=== PATIENT | female | born 1955 | race Caucasian/White ===

== ENCOUNTER 2016-10-10 00:50 | Emergency (ER) | payer OTHER ==
[2016-10-10 00:50] VITALS: BP 147/83
[~2016-10-10 00:50] MED LIST: ALBU1.25 NEB; ALBU18HF IH; CETI10TA22 PO; EPIN0.3A4 IJ; FLUT1DIS3 IH; Hydrocodone/Acetaminophen PO; MONT10TA6 PO; NITR100C62 PO
--- NOTE | 2016-10-10 00:52 | ED.ADGEN ---
Past History Past Medical History: Asthma Past Surgical History: No Surgical History, Other Smoking: Non-smoker Alcohol Use: None Drug Use: None Adult General Chief Complaint Chief Complaint " .. I was working out on that range of motion machine.. after my surgery.. and nella got a contusion on my right calf... But then I started noticing.. I having pain from my surgery site.. and all the way down to my toes on the right leg.... I'm out of my tramadol... I would like something to get me thru. until I see orthro... follow up with my doctor... Dr. Sanford... He has been doing the orthro. surgery at [facility]. .." HPI HPI Patient is a 61 year old female who presents with above hx and complaints of left leg pain which follows the sciatic nerve. Patient recently had surgery for labia hip tears. Patient denies any trauma other than the problems with range of motion unit. Distal neurovascular intact. Patient is still using crutches. Patient also complaining of some right leg muscle spasms Patient has a follow- up with orthopedics. Patient declines x-rays or lab work at this time. Wishes to be treated clinically for right leg pain. No history of DVTs or pulmonary embolisms or coagulopathy. Review of Systems Review of Systems Constitutional: Denies fever or chills [] Eyes: Denies change in visual acuity, redness, or eye pain [] HENT: Denies nasal congestion or sore throat [] Respiratory: Denies cough or shortness of breath [] Cardiovascular: No additional information not addressed in HPI [] GI: Denies abdominal pain, nausea, vomiting, bloody stools or diarrhea [] : Denies dysuria or hematuria [] Musculoskeletal: Denies back pain or joint pain [] complaints of right leg pain Integument: Denies rash or skin lesions [] Neurologic: Denies headache, focal weakness or sensory changes [] Endocrine: Denies polyuria or polydipsia [] Family History Family History Noncontributory Current Medications Current Medications See nursing for home medications Current Medications Medications (Trade) Dose Ordered Sig/Claus Start Time Stop Time Status Last Admin Dose Admin Morphine Sulfate (Morphine 10mg Syringe) 10 mg STK-MED ONCE 10/10/16 02:07 10/10/16 02:26 DC Orphenadrine Citrate (Norflex) 60 mg STK-MED ONCE 10/10/16 02:07 10/10/16 02:26 DC Allergies Allergies Allergies Coded Allergies Type Severity Reaction Last Updated Verified amoxicillin Allergy Severe 03/11/15 Yes cinnamon Allergy Severe SHORTNESS OF BREATH 03/11/15 Yes codeine Allergy Severe 03/12/15 Yes pseudoephedrine HCl Allergy Severe 03/11/15 Yes wheat Adverse Reaction Severe Nausea 06/15/13 Yes Physical Exam Physical Exam Constitutional: Mild distress, non-toxic appearance. [] HENT: Normocephalic, atraumatic, bilateral external ears normal, oropharynx moist, no oral exudates, nose normal. [] Eyes: PERRLA, EOMI, conjunctiva normal, no discharge. Disconjugate gaze Neck: Normal range of motion, no tenderness, supple, no stridor. [] Cardiovascular:Heart rate regular rhythm, no murmur [] Lungs & Thorax: Bilateral breath sounds equal at apex on auscultation [] Abdomen: Bowel sounds normal, soft, no tenderness, no masses, no pulsatile masses. [] Skin: Warm, dry, no erythema, no rash. [] Back: No tenderness, no CVA tenderness. [] Extremities: Right hip and right sciatic tenderness, no cyanosis, no clubbing, ROM but did in right leg, no edema. Suture lines are well-healed. Some mild ecchymosis at suture lines. No cording appreciated. Neurologic: Alert and oriented X 3, normal motor function, normal sensory function, no focal deficits noted. DTRs +2 at patella's Psychologic: Affect anxious, judgement normal, mood normal. [] Current Patient Data Vital Signs Vital Signs Date Time Temp Pulse Resp B/P Pulse Ox O2 Delivery O2 Flow Rate FiO2 10/10/16 02:11 20 98 Room Air EKG EKG [] Radiology/Procedures Radiology/Procedures [] Course & Med Decision Making Course & Med Decision Making Pertinent Labs and Imaging studies reviewed. (See chart for details). Patient to continue post surgery therapy as previously directed. Patient called to see if she can get an earlier appointment [facility]. Patient continue ice packs as needed. Patient may take Flexeril 5 mg up 3 times a day for muscle spasms. Patient take [id number] Tylenol and ibuprofen for pain. For marked discomfort patient may take Vicoprofen or tramadol up to 4 times a day. Return if any concerns. [] Final Impression Final Impression 1. Sciatic pain Lt. 2. Hx. of Rt. Hip labia repair [] Problems: Dragon Disclaimer Dragon Disclaimer This electronic medical record was generated, in whole or in part, using a voice recognition dictation system. EFRAÍN BECK MD Oct 10, 2016 00:52
[2016-10-10] MEDS ORDERED: HYDR-79 PO (01:24)
[2016-10-10] MEDS ORDERED: CYCL5TAB PO (01:24)
[2016-10-10] MEDS ORDERED: TRAM1TAB4 PO (01:24)
[2016-10-10] MEDS ORDERED: MORPHINE SULFATE 10 MG/ML SYRINGE. SQ ONE (01:30)
[2016-10-10] MEDS ORDERED: ORPHENADRINE CITRATE 60 MG/2 ML VIAL. IM ONE (01:30)
[2016-10-10] MEDS ORDERED: MORPHINE SULFATE 10 MG/ML SYRINGE. ONE (02:07)
[2016-10-10] MEDS ORDERED: ORPHENADRINE CITRATE 60 MG/2 ML VIAL. ONE (02:07)
== END 2016-10-10 02:20 | disposition home or self-care (01) ==
LOC: ER 00:50
DX: M54.32 Sciatica, left side (principal); J45.909 Unspecified asthma, uncomplicated; Z98.890 Other specified postprocedural states; Z88.1 Allergy status to other antibiotic agents; Z88.5 Allergy status to narcotic agent; Z88.8 Allergy status to other drugs, medicaments and biological substances; Z91.018 Allergy to other foods
CPT/HCPCS: 96372; 99284; J2270; J2360

== ENCOUNTER 2016-12-11 12:26 | Emergency (ER) | payer OTHER ==
[~2016-12-11 12:26] MED LIST changes: +CYCL5TAB PO; +HYDR-79 PO; +TRAM1TAB4 PO
[2016-12-11 12:34] VITALS: BP 157/84
[2016-12-11] MEDS ORDERED: PRED50TA PO (12:46)
[2016-12-11] MEDS ORDERED: FAMO-63 PO (12:46)
--- NOTE | 2016-12-11 12:47 | PHYS DOC ---
Past History Past Medical History: Asthma, Kidney Stones Past Surgical History: No Surgical History, Other Smoking: Non-smoker Alcohol Use: None Drug Use: None Adult General Chief Complaint Chief Complaint: ALLERGIC REACTION HPI HPI History 11-year-old female with a history of gluten among other allergies now presents emergency Department after accidentally eating some bread which was not gluten-free. Patient states she has itching and some mild hives. No difficulty swallowing or voice changes. No wheezing or shortness of breath. No other complaints Review of Systems Review of Systems Constitutional: Denies fever or chills [] Eyes: Denies change in visual acuity, redness, or eye pain [] HENT: Denies nasal congestion or sore throat [] Respiratory: Denies cough or shortness of breath [] Cardiovascular: No additional information not addressed in HPI [] GI: Denies abdominal pain, nausea, vomiting, bloody stools or diarrhea [] : Denies dysuria or hematuria [] Musculoskeletal: Denies back pain or joint pain [] Integument: Denies rash or skin lesions [] Neurologic: Denies headache, focal weakness or sensory changes [] Endocrine: Denies polyuria or polydipsia [] Allergies Allergies Allergies Coded Allergies Type Severity Reaction Last Updated Verified amoxicillin Allergy Severe 03/11/15 Yes cinnamon Allergy Severe SHORTNESS OF BREATH 03/11/15 Yes codeine Allergy Severe 03/12/15 Yes pseudoephedrine HCl Allergy Severe 03/11/15 Yes wheat Adverse Reaction Severe Nausea 06/15/13 Yes Physical Exam Physical Exam Well-appearing patient in no acute distress no signs of airway involvement. Normal voice no stridor no wheezing or increased work of breathing. Constitutional: Well developed, well nourished, no acute distress, non-toxic appearance. [] HENT: Normocephalic, atraumatic, bilateral external ears normal, oropharynx moist, no oral exudates, nose normal. [] Eyes: PERRLA, EOMI, conjunctiva normal, no discharge. [] Neck: Normal range of motion, no tenderness, supple, no stridor. [] Cardiovascular:Heart rate regular rhythm, no murmur [] Lungs & Thorax: Bilateral breath sounds clear to auscultation [] Abdomen: Bowel sounds normal, soft, no tenderness, no masses, no pulsatile masses. [] Skin: Warm, dry, no erythema, mild scattered urticaria Back: No tenderness, no CVA tenderness. [] Extremities: No tenderness, no cyanosis, no clubbing, ROM intact, no edema. [] Neurologic: Alert and oriented X 3, normal motor function, normal sensory function, no focal deficits noted. [] Psychologic: Affect normal, judgement normal, mood normal. [] EKG EKG [] Radiology/Procedures Radiology/Procedures [] Course & Med Decision Making Course & Med Decision Making Pertinent Labs and Imaging studies reviewed. (See chart for details) Yulia and symptoms consistent with mild generalized allergic reaction. No evidence of airway involvement. Patient given steroids and Pepcid. She has taken Benadryl prior to arrival. She is aware he is Benadryl and Pepcid when necessary and finished steroids as prescribed. Patient will follow up with PCP for reevaluation and return to the emergency department for new severe worsening symptoms specifically for signs of airway involvement. All pathologist after finalization of treatment for reevaluation and allergy testing. [] Dragon Disclaimer Dragon Disclaimer This chart was dictated in whole or in part using Voice Recognition software in a busy, high-work load, and often noisy Emergency Department environment. It may contain unintended and wholly unrecognized errors or omissions. Departure Departure: Disposition: 01 HOME, SELF-CARE Condition: STABLE Referrals: ALISSA ALONSO (PCP) Patient Instructions: Food Allergy Additional Instructions: It appears he had a mild allergic reaction to a food. Your hives and itching are suggestive of a generalized allergic reaction. Use Benadryl and Pepcid as needed for itching and hives. That is prednisone as prescribed starting tomorrow. We have given you a dose of prednisone to initiate her therapy today. Follow with your doctor for reevaluation and return immediately for signs of airway symptoms including diplopia breathing, voice changes, or wheezing. Scripts Prednisone (PREDNISONE) 50 Mg Tablet 1 TAB PO DAILY for 5 Days, #5 TAB Prov: SARAH MANN MD 12/11/16 Famotidine (PEPCID) 20 Mg Tablet 20 MG PO BID for ALLERGIES, #14 TAB Prov: SARAH MANN MD 12/11/16 SARAH MANN MD Dec 11, 2016 12:46
[2016-12-11] MEDS ORDERED: FAMOTIDINE 20 MG TABLET PO ONE (13:20)
[2016-12-11] MEDS ORDERED: predniSONE 10 MG TABLET PO ONE (13:20)
== END 2016-12-11 13:03 | disposition home or self-care (01) ==
LOC: ER 12:26
DX: T78.1XXA Other adverse food reactions, not elsewhere classified, initial encounter (principal); J45.909 Unspecified asthma, uncomplicated; Z87.442 Personal history of urinary calculi; Z88.1 Allergy status to other antibiotic agents; Z88.6 Allergy status to analgesic agent; Z88.8 Allergy status to other drugs, medicaments and biological substances; Z91.018 Allergy to other foods; X58.XXXA Exposure to other specified factors, initial encounter
CPT/HCPCS: 99283; J7512

== ENCOUNTER 2019-07-23 19:41 | Inpatient (IN) | payer OTHER ==
[~2019-07-23] VITALS: Ht 157.5 cm; Wt 65.1 kg
[~2019-07-23 19:41] MED LIST changes: -ALBU18HF IH; +ALBU2.5V8 IH; +ATOR10TA PO; -CETI10TA22 PO; +CETI10TA24 PO; +FAMO-63 PO; +HYDR-1179 PO; -HYDR-79 PO; +IBUP800T19 PO; -MONT10TA6 PO; +MONT10TA80 PO; +PRED50TA PO; +TELM40TA PO
[2019-07-23] MEDS ORDERED: IV RINGERS SOLUTION,LACTATED 1,000 ML IV SCH (19:46)
--- NOTE | 2019-07-23 19:46 | PHYS DOC ---
Past History Past Medical History: Anxiety, Asthma, High Cholesterol, Hypertension Past Surgical History: Other Smoking: Non-smoker Alcohol Use: None Drug Use: None Adult General Chief Complaint Chief Complaint: ASTHMA..." This was this pt. smoking in her room.. I was in there.. and I started getting really short of breath... 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 Patient has history of periodic asthma exacerbations. Has not been on steroids recently. Patient is up-to-date with vaccinations. Didn't receive flu vaccination this season. Patient does have a history of elevated glucose levels with steroids. No recent travel. Is contact dermatitis ill patients. Pt. follows at [place] with Dr. Osei Review of Systems Review of Systems Constitutional: Denies fever or chills [] Eyes: Denies change in visual acuity, redness, or eye pain [] HENT: Denies nasal congestion or sore throat [] Respiratory: Complaints of spasmatic coughing and wheezing Cardiovascular: No additional information not addressed in HPI [] GI: Denies abdominal pain, nausea, vomiting, bloody stools or diarrhea [] : Denies dysuria or hematuria [] Musculoskeletal: Denies back pain or joint pain [] Integument: Denies rash or skin lesions [] Neurologic: Denies headache, focal weakness or sensory changes [] Endocrine: Denies polyuria or polydipsia [] All other systems were reviewed and found to be within normal limits, except as documented in this note. Family History Family History Noncontributory presentation Current Medications Current Medications See nursing for home meds Allergies Allergies Allergies Coded Allergies Type Severity Reaction Last Updated Verified amoxicillin Allergy Severe 02/24/18 Yes cinnamon Allergy Severe SHORTNESS OF BREATH 02/24/18 Yes codeine Allergy Severe 02/24/18 Yes pseudoephedrine HCl Allergy Severe 02/24/18 Yes wheat Adverse Reaction Severe Nausea 02/24/18 Yes Physical Exam Physical Exam Constitutional: Moderately acute distress, non-toxic appearance. [] HENT: Normocephalic, atraumatic, bilateral external ears normal, oropharynx moist, no oral exudates, nose clear rhinorrhea.[] Eyes: PERRLA, EOMI, conjunctiva normal, no discharge. [] Neck: Normal range of motion, no tenderness, supple, no stridor. [] Cardiovascular: Tachycardia Heart rate regular rhythm, no murmur [] Lungs & Thorax: Bilateral breath sounds equal apex with wheezes throughout on auscultation [] Abdomen: Bowel sounds normal, soft, no tenderness, no masses, no pulsatile masses. [] Skin: Warm, dry, no erythema, no rash. [] Back: No tenderness, no CVA tenderness. [] Extremities: No tenderness, no cyanosis, no clubbing, ROM intact, no edema. No cording appreciated[] Neurologic: Alert and oriented X 3, normal motor function, normal sensory function, no focal deficits noted. [] Psychologic: Affect anxious, judgement normal, mood normal. [] EKG EKG I interpretation EKG is sinus rhythm at 89 bpm. No findings acute STEMI. Does have a leftward axis.[] Radiology/Procedures Radiology/[place] [address] IMAGING REPORT Signed PATIENT: TATE MCCORMACK ACCOUNT: [id number] : 1955 LOCATION: ER AGE: 63 SEX: F EXAM STATUS: REG ER ORD. PHYSICIAN: EFRAÍN BECK MD REASON: dyspnea, asthma ex PROCEDURE: PORTABLE CHEST 1V EXAM: AP View of the chest DATE: 07/23/2019 7:46 PM INDICATION: Dyspnea, asthma exacerbation COMPARISON: 02/24/2018, CT 07/16/2009, CT spine 06/15/2013 FINDINGS: The heart is not enlarged. Mediastinal and hilar contours are normal. Patchy opacities medial right lung base likely atelectasis. No lobar consolidation. Right apical pleural/painful scarring/thickening, with partially seen on prior CT 07/16/2009. No pleural effusion or pneumothorax. IMPRESSION: 1. Patchy opacities medial right lung base likely atelectasis. Infiltrate is not entirely excluded but is felt to be less likely 2. Right apical pleural/medical scarring/thickening is seen. Electronically signed by: Neal Alexis MD (07/23/2019 9:29 PM) [id number] DICTATED AND SIGNED BY: NEAL ALEXIS MD DATE: 07/23/199 CC: ALISSA ALONSO; EFRAÍN BECK MD ~ [][place] [id number] IMAGING REPORT Signed PATIENT: TATE MCCORMACK ACCOUNT: [id number] : 1955 LOCATION: [address] [place] [address] AGE: 63 SEX: F EXAM STATUS: ADM IN ORD. PHYSICIAN: EFRAÍN BECK MD REASON: elevtated d-dimer PROCEDURE: VENOUS LOWER EXT BILATERAL Bilateral Lower Extremity Venous Doppler Ultrasound History: Elevated d-dimer Comparison: None Procedure: Color flow, duplex, spectral analysis and 2D images are obtained with and without compression in the area of the common femoral vein, superficial femoral vein - femoral vein junction, main femoral vein (superficial femoral vein) and popliteal vein. Veins of the proximal calf are also imaged. Findings: There is normal duplex flow, color flow and compressibility of all visualized vein segments. No evidence of deep venous thrombus is present. Impression: No evidence of DVT. Electronically signed by: Anne Marie Stevens III, MD (07/24/2019 6:06 AM) [id number] DICTATED AND SIGNED BY: ANNE MARIE STEVENS III, MD DATE: 07/24/19605 CC: ALISSA ALONSO; EFRAÍN BECK MD; SIL TURPIN MD ~ Course & Med Decision Making Course & Med Decision Making Pertinent Labs and Imaging studies reviewed. (See chart for details) After treatment in the emergency department had minimal improvement in her wheezing and dyspnea. Will admit to Dr. Turpin, for furhter eval and tx. . Consider CT chest if US LEGS are negative, after adequate hydration. Impression: 1. Asthma exacerbation 2. Pleural scarring and atypical infiltrates-versus atelectasis 3. Elevated glucose 145 4. Elevated d-dimer 0.53 5. Mild elevation in alkaline phosphatase 121 [] Dragon Disclaimer Dragon Disclaimer This electronic medical record was generated, in whole or in part, using a voice recognition dictation system. Departure Departure: Disposition: 01 HOME/RESIDENCE PRIOR TO ADM Condition: STABLE Referrals: ALISSA ALONSO (PCP) Abram Disclaimer This chart was dictated in whole or in part using Voice Recognition software in a busy, high-work load, and often noisy Emergency Department environment. It may contain unintended and wholly unrecognized errors or omissions. EFRAÍN BECK MD Jul 23, 2019 19:46
[2019-07-23] MEDS ORDERED: methylPREDNISolone SOD SUCC PF 125 MG/2 ML VIAL. IV ONE (20:00)
[2019-07-23] MEDS ORDERED: IPRATRPIUM/ALBUTEROL 0.5/2.5MG 3 ML NEBU. NEB ONE (20:00)
[2019-07-23 20:35] LABS: BASO % 0 % (0-3); EOS # 0.3 x10^3/uL (0.0-0.7); EOS % 3 % (0-3); HEMATOCRIT 40.8 % (36.0-47.0); HEMOGLOBIN 13.4 g/dL (12.0-15.5); LYMPH # 4.6 x10^3/uL (1.0-4.8); LYMPH % 46 % (24-48); MEAN CORPUSCULAR HEMOGLOBIN 28 pg (25-35); MEAN CORPUSCULAR HGB CONC 33 g/dL (31-37); MEAN CORPUSCULAR VOLUME 85 fL (79-100); MONO # 0.7 x10^3/uL (0.0-1.1); MONO % 7 % (0-9); NEUT # 4.3 x10^3uL (1.8-7.7); NEUT % 44 % (31-73); PLATELET COUNT 260 x10^3/uL (140-400); RED BLOOD COUNT 4.78 x10^6/uL (3.50-5.40); RED CELL DISTRIBUTION WIDTH 13.1 % (11.5-14.5)
[2019-07-23] MEDS ORDERED: ENOXAPARIN ** NOTE DOSE ** SYRINGE SQ ONE (20:45)
[2019-07-23] MEDS ORDERED: ASPIRIN 81 MG TAB.CHEW PO ONE (20:45)
[2019-07-23 20:46] LABS: CALCIUM 8.8 mg/dL (8.5-10.1); GFR 56.4; POTASSIUM 3.7 mmol/L (3.5-5.1)
[2019-07-23 20:58] LABS: ALBUMIN 4.1 g/dL (3.4-5.0); DIRECT BILIRUBIN 0.1 mg/dL (0.0-0.2); TOTAL BILIRUBIN 0.4 mg/dL (0.2-1.0)
[2019-07-23 21:14] LABS: BACTERIA,URINE 0 /HPF (0-FEW); BILIRUBIN,URINE NEG (NEG); CLARITY,URINE CLEAR; COLOR,URINE YELLOW; GLUCOSE,URINE NEG (NEG); NITRITE,URINE NEG (NEG); RBC,URINE RARE /HPF (0-2); SQUAMOUS EPITHELIAL CELL,UR OCC /LPF; UROBILINOGEN,URINE 0.2 mg/dL (0.2 mg/dL); WBC,URINE RARE /HPF (0-4)
--- NOTE | 2019-07-23 21:32 | RAD ---
EXAM: AP View of the chest DATE: 07/23/2019 7:46 PM INDICATION: Dyspnea, asthma exacerbation COMPARISON: 02/24/2018, CT 07/16/2009, CT spine 06/15/2013 FINDINGS: The heart is not enlarged. Mediastinal and hilar contours are normal. Patchy opacities medial right lung base likely atelectasis. No lobar consolidation. Right apical pleural/painful scarring/thickening, with partially seen on prior CT 07/16/2009. No pleural effusion or pneumothorax. IMPRESSION: 1. Patchy opacities medial right lung base likely atelectasis. Infiltrate is not entirely excluded but is felt to be less likely 2. Right apical pleural/medical scarring/thickening is seen. Electronically signed by: Neal Mcleod MD (07/23/2019 9:29 PM) [id number]
[2019-07-23 21:36] LABS: INFLUENZA A PATIENT NEGATIVE (NEGATIVE); INFLUENZA B PATIENT NEGATIVE (NEGATIVE)
[2019-07-23] MEDS ORDERED: MAGNESIUM SULFATE 2GM 50 ML IV ONE (22:15)
[2019-07-23] MEDS ORDERED: ONDANSETRON PF 4 MG/2 ML VIAL. IV PRN (22:15)
[2019-07-23] MEDS ORDERED: ANTI-COAG MONITOR BY PHARMACY. MC PRN (23:30)
[2019-07-23 23:46] VITALS: BP 130/81
[2019-07-24] MEDS ORDERED: LIDO700A21 TP (01:37)
--- NOTE | 2019-07-24 01:58 | NUR ---
The patient, TATE MCCORMACK, 63 y/o, F admitted by SIL TOLENTINO MD, was given written information regarding hospital policies, unit procedures and contact persons. Valuables were checked and noted. PT presented with increased SOB, admitted for asthma exacerbation. PT transported via EMS to [address] [place] [address], transferred [facility] safely by walking. Magnesium running at time of admission for smooth muscle relaxation for treatment of asthma exacerbation. Reviewed with PT her PMH, PSH, SH, FH and current medications.
--- NOTE | 2019-07-24 03:05 | EKG ---
[address] [address] Test Date: 2019-07-23 Test Time: 20:24:32 Pat Name: TATE MCCORMACK Department: Room: Gender: F Bus Transportation Manager: : 1955 Requested By: EFRAÍN BECK Order Number: [id number] Reading MD: Measurements Intervals [place] Rate: 89 P: 11 WY: 172 QRS: -8 QRSD: 86 T: 54 QT: 366 QTc: 446 Interpretive Statements SINUS RHYTHM LEFTWARD AXIS NO SPECIFIC ECG ABNORMALITIES RI6.01 No previous ECG available for comparison
[2019-07-24 05:05] VITALS: BP 103/63
[2019-07-24] MEDS ORDERED: IPRATRPIUM/ALBUTEROL 0.5/2.5MG 3 ML NEBU. ONE (05:09)
[2019-07-24] MEDS: IPRATRPIUM/ALBUTEROL 0.5/2.5MG 3 ML NEBU. NEB SCH ×4 (05:29→20:30)
--- NOTE | 2019-07-24 06:09 | RAD ---
Bilateral Lower Extremity Venous Doppler Ultrasound History: Elevated d-dimer Comparison: None Procedure: Color flow, duplex, spectral analysis and 2D images are obtained with and without compression in the area of the common femoral vein, superficial femoral vein - femoral vein junction, main femoral vein (superficial femoral vein) and popliteal vein. Veins of the proximal calf are also imaged. Findings: There is normal duplex flow, color flow and compressibility of all visualized vein segments. No evidence of deep venous thrombus is present. Impression: No evidence of DVT. Electronically signed by: Wilton Curtis III, MD (07/24/2019 6:06 AM) [id number]
[2019-07-24 06:43] LABS: BASO % 0 % (0-3); EOS % 0 % (0-3); HEMOGLOBIN 12.5 g/dL (12.0-15.5); LYMPH % 10 % (24-48); MEAN CORPUSCULAR HEMOGLOBIN 28 pg (25-35); MEAN CORPUSCULAR HGB CONC 33 g/dL (31-37); MEAN CORPUSCULAR VOLUME 86 fL (79-100); MONO # 0.1 x10^3/uL (0.0-1.1); MONO % 1 % (0-9); NEUT # 8.7 x10^3uL (1.8-7.7); NEUT % 89 % (31-73); PLATELET COUNT 225 x10^3/uL (140-400); RED BLOOD COUNT 4.42 x10^6/uL (3.50-5.40); WHITE BLOOD COUNT 9.7 x10^3/uL (4.0-11.0)
[2019-07-24 07:01] LABS: CALCIUM 8.7 mg/dL (8.5-10.1); CREATININE 1.1 mg/dL (0.6-1.0); GFR 50.5; POTASSIUM 3.2 mmol/L (3.5-5.1)
[2019-07-24] MEDS: methylPREDNISolone SOD SUCC PF 125 MG/2 ML VIAL. IV SCH (08:13)
[2019-07-24] MEDS: ACETAMINOPHEN 325 MG TABLET PO PRN ×3 (08:23→21:15)
[2019-07-24] MEDS ORDERED: ENOXAPARIN ** NOTE DOSE ** SYRINGE SQ ONE (09:00)
[2019-07-24] MEDS ORDERED: POTASSIUM CHLORIDE 20 MEQ TABLET.ER. PO ONE (09:30)
[2019-07-24] MEDS ORDERED: CALCIUM CARBONATE 500 MG TAB.CHEW PO PRN (09:30)
[2019-07-24 10:46] VITALS: BP 124/62
[2019-07-24] MEDS: PANTOPRAZOLE IV 40 MG VIAL. IVP SCH (12:17)
[2019-07-24 16:20] VITALS: BP 135/75
[2019-07-24] MEDS ORDERED: DEXTROSE 50% 25 GM / 50ML DISP.SYRIN. IV PRN (16:30)
[2019-07-24] MEDS: POTASSIUM CL 40MEQ IN 0.9%NACL 1,000 ML IV SCH (17:08)
[2019-07-24 17:22] LABS: THYROID STIM HORMONE (TSH) 1.124 uIU/mL (0.358-3.740)
[2019-07-24] MEDS: INSULIN LISPRO 300 UNITS/3 ML VIAL. SQ SCH (17:28)
[2019-07-24 19:36] VITALS: BP 153/74
--- NOTE | 2019-07-24 19:54 | SSS ---
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 The patient has history of periodic asthma exacerbation, has not had steroids recently. The patient is up-to-date on vaccination. She does have history of elevated glucose level with steroids. No recent travel. Her primary care physician is at [facility]; however, she went to see a patient and found her smoking in her room and started getting really short of breath with asthma exacerbation. She was evaluated in the emergency room. Her chest x-ray showed that she has patchy opacities medial right lung base, likely atelectasis, no lobar consolidation, right apical pleural scarring, thickening with partially seen on prior CT scan. No pleural effusion or pneumothorax. She was admitted with acute asthma exacerbation. She has received ipratropium bromide, methylprednisone and Protonix as she developed severe acid reflux with steroids. Her lab work was unremarkable except for mildly elevated d-dimer. Urinalysis was unremarkable and influenza A and B were negative. She did have bilateral lower extremity deep venous thrombosis , no evident DVT. By the time I saw her this afternoon, she was doing well, had no chest tightness or wheezing. She has cough, mostly dry. Denied any shortness of breath. The patient will be discharged home on a tapering course of steroids as well as Protonix and advised to continue with her nebulized albuterol. PAST MEDICAL HISTORY: Significant for bronchial asthma, history of kidney stones. PAST SURGICAL HISTORY: Significant for tubal ligation, lumpectomy and has had also colonoscopy. FAMILY HISTORY: Positive for gallbladder disease in her mother when she was 68 and also a nephew with gallbladder disease. Medically, she is also known to have hypertension, hyperlipidemia. ALLERGIES: She is allergic to AMOXICILLIN, CINNAMON, CODEINE, PSEUDOEPHEDRINE as well as WHEAT. FAMILY HISTORY: She has one brother at age of 52 because of massive GI bleed. She has 2 sisters and 4 brothers, they are all still alive. Her sister has myocardial infarction at the age of 55. Her father at age of 69 because of myocardial infarction. Her mother at age of 72 because of Alzheimer disease and cerebrovascular accident. SOCIAL HISTORY: She is , has 2 sons. She does not smoke, drink alcohol or use any recreational drugs. 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 MEDICATIONS: She is currently on following medications: She is on albuterol sulfate 1.25 mg by nebulizer 4 times a day, Ventolin inhaler 2 puffs every 4 hours, epinephrine or EpiPen for anaphylactic shock as needed, atorvastatin calcium 10 mg at bedtime, Micardis 40 mg once a day, Advair Diskus 250/50 one puff twice a day and Lidoderm patch applied topically once a day. PHYSICAL EXAMINATION: GENERAL: On arrival to the emergency room, she looked well and was slightly tachypneic, but there is no jaundice, cyanosis or thyromegaly. No jugular venous distention. No limb edema. VITAL SIGNS: Her heart rate was 99, blood pressure was 104/74, temperature of 98.1, respiratory rate 23 and oxygen saturation was 95%. HEAD, EYES, EARS, NOSE AND THROAT: Normocephalic, atraumatic. NECK: Supple. HEART: Showed normal first and second heart sounds. No gallop, rub or murmur. CHEST: Clear to auscultation. No crepitation or rhonchi. LUNGS: Wheezing throughout on auscultation. ABDOMEN: Distended, soft, nontender. NEUROLOGIC: She was awake, alert. NEUROLOGICAL: She was grossly intact. LABORATORY DATA: Her EKG showed that she was in sinus rhythm at a rate of 89 beats per minute, no finding consistent with a STEMI. Her chest x-ray showed that she has patchy opacities, medial right lung base, likely atelectasis, infiltrate is not entirely excluded, but is felt to be less likely, right apical pleural medial scarring thickening seen. Her lab work showed a white cell count of 10,000, hemoglobin 13, hematocrit 40, MCV 85 and platelet count 260,000. Her chemistry showed a serum sodium 142, potassium 3.7, chloride 106, bicarbonate 21, anion gap of 15, BUN 15, creatinine 1, estimated GFR was 56, glucose 145, calcium was 8.8, magnesium 2. Total bilirubin, AST, ALT, alkaline phosphatase were normal. Total protein was 98. Beta natriuretic peptide was 33. Total protein was 7, albumin was 4.1. Lipase 144. Her prothrombin time, INR and PTT are normal. D-dimer was slightly elevated at 0.53. Urinalysis essentially unremarkable and her influenza A and B were negative after she received treatment. When I saw her this afternoon, she was sitting at the edge of the bed, complaining of no apparent distress. No jaundice, cyanosis or thyromegaly. No jugular venous distention. No limb edema. Her heart rate was 104, blood pressure was 130/81, temperature was 97.9, respiratory rate 24 and oxygen saturation was 98% on room air. Head, eyes, ears, nose and throat; normocephalic, atraumatic. Neck was supple. Heart showed normal first and second heart sounds. No gallop, rub or murmur. Chest was clear to auscultation. No crepitation or rhonchi. Abdomen was scaphoid, soft, nontender. Neurological, she was grossly intact. Her lab work this morning showed a white cell count was 9700, hemoglobin 12.5, hematocrit 38, MCV 86 and platelet count of 225,000. Her chemistry showed a serum sodium 142, potassium 3.2, chloride 107, bicarbonate 17, anion gap of 18, BUN 13, creatinine 1.1, estimated GFR was 50 mL per minute. Her glucose was 108, calcium was 8.7. Urinalysis was unremarkable. ASSESSMENT AND PLAN: 1. Acute asthma exacerbation, resolving. 2. Steroid-induced hyperglycemia. D-dimer was slightly elevated; however, her bilateral lower extremity was negative for DVT. Given that she is now mildly acidotic with high anion gap and impaired kidney function, I actually recommended the patient stay and continue IV fluid, replenish her potassium, continue with steroids and evaluate her again tomorrow before she can be discharged home. SIL TOLENTINO MD DR: LUIS DANIEL/maranda JOB#: [id number] / [id number]
[2019-07-24 22:56] VITALS: BP 124/71
[2019-07-25] MEDS: POTASSIUM CL 40MEQ IN 0.9%NACL 1,000 ML IV SCH ×2 (03:31→12:30)
[2019-07-25 06:03] VITALS: BP 149/66
[2019-07-25 07:09] LABS: HEMATOCRIT 35.2 % (36.0-47.0); HEMOGLOBIN 11.3 g/dL (12.0-15.5); RED BLOOD COUNT 4.07 x10^6/uL (3.50-5.40); RED CELL DISTRIBUTION WIDTH 13.4 % (11.5-14.5)
[2019-07-25 07:27] LABS: ALBUMIN 3.3 g/dL (3.4-5.0); ALBUMIN/GLOBULIN RATIO 1.2 (1.0-1.7); CALCIUM 8.3 mg/dL (8.5-10.1); CREATININE 0.8 mg/dL (0.6-1.0); GFR 72.9; POTASSIUM 4.5 mmol/L (3.5-5.1); TOTAL BILIRUBIN 0.2 mg/dL (0.2-1.0)
[2019-07-25] MEDS: INSULIN LISPRO 300 UNITS/3 ML VIAL. SQ SCH ×2 (08:00→12:00)
[2019-07-25] MEDS: methylPREDNISolone SOD SUCC PF 125 MG/2 ML VIAL. IV SCH (08:03)
[2019-07-25] MEDS: PANTOPRAZOLE IV 40 MG VIAL. IVP SCH (08:03)
[2019-07-25] MEDS ORDERED: POLYETHYLENE GLYCOL 3350 17 GM PACKET. PO PRN (08:15)
[2019-07-25 11:09] VITALS: BP 156/80
--- NOTE | 2019-07-25 14:27 | NUR ---
NURSING NOTE DISCHARGE PT DISCHARGED TO HOME VIA AMBULATION ACCOMPANIED BY . WRITTEN AND VERBAL DISCHARGE INSTRUCTIONS GIVEN TO PT. SCRIPT FOR MEDROL DOSE PACK AND PROTONIX GIVEN TO PT. NO COMPLICATIONS. KRISTAL ALEXANDER.
== END 2019-07-25 14:30 | disposition home or self-care (01) | DRG 202 ==
LOC: ER 19:41 → 1 SOUTH 22:20
PROVIDERS: ADMIT Internal Medicine; ATTEND Internal Medicine
DX: J45.901 Unspecified asthma with (acute) exacerbation (principal); J98.11 Atelectasis; E78.00 Pure hypercholesterolemia, unspecified; I10 Essential (primary) hypertension; K21.9 Gastro-esophageal reflux disease without esophagitis; L25.9 Unspecified contact dermatitis, unspecified cause; F41.9 Anxiety disorder, unspecified; R73.9 Hyperglycemia, unspecified; T38.0X5A Adverse effect of glucocorticoids and synthetic analogues, initial encounter; Z82.0 Family history of epilepsy and other diseases of the nervous system; Z82.3 Family history of stroke; Z82.49 Family history of ischemic heart disease and other diseases of the circulatory system; Z87.442 Personal history of urinary calculi; Z88.8 Allergy status to other drugs, medicaments and biological substances
CPT/HCPCS: 36415; 71045; 80048; 80053; 80061; 80076; 81001; 82550; 82947; 83690; 83735; 83880; 84443; 84484; 85025; 85027; 85379; 85610; 85730; 86705; 86709; 86803; 87340; 87804; 93005; 93970; 94640; 96361; 96365; 96372; 96375; C9113; J1650; J1815; J2930; J3475; J7120; J7620; 99285-25

== ENCOUNTER → 2020-01-03 | Outpatient (CLI) | payer OTHER ==
[~2020-01-03] MED LIST changes: +LIDO700A21 TP
== END | disposition home or self-care (01) ==
LOC: LAB 13:29
PROVIDERS: ATTEND Internal Medicine Cardiovascular Disease
DX: Z20.828 Contact with and (suspected) exposure to other viral communicable diseases (principal)
CPT/HCPCS: C9803; U0003; 36415

== ENCOUNTER → 2020-05-02 | Outpatient (CLI) | payer OTHER ==
[~2020-05-02] MED LIST changes: -CETI10TA24 PO; +CETI10TA74 PO
== END ==
LOC: LAB 08:52
PROVIDERS: ATTEND Internal Medicine Cardiovascular Disease
DX: Z20.828 Contact with and (suspected) exposure to other viral communicable diseases (principal)
CPT/HCPCS: U0003